=== PATIENT | male | born 1960 | race Caucasian/White ===

== ENCOUNTER → 2017-10-18 | Outpatient (CLI) | payer OTHER | LOC: NM 13:05 | PROVIDERS: ATTEND Internal Medicine | DX: K80.80 Other cholelithiasis without obstruction (principal) ==

== ENCOUNTER 2019-09-17 10:52 | Emergency (ER) | payer OTHER ==
[~2019-09-17] VITALS: Ht 177.8 cm; Wt 74.8 kg
[2019-09-17] MEDS ORDERED: ONDANSETRON HCL INJ 2MG/ML 2ML 2 MG/ML VIAL IV STA (11:27)
[2019-09-17] MEDS ORDERED: SODIUM CHLORIDE 0.9% 1000ML 1,000 ML IV SCH (11:30)
[2019-09-17] MEDS ORDERED: ONDANSETRON HCL INJ 2MG/ML 2ML 2 MG/ML VIAL ONE (11:38)
[2019-09-17] MEDS ORDERED: SODIUM CHLORIDE 0.9% 1000ML 1,000 ML ONE (11:38)
--- NOTE | 2019-09-17 12:38 | Diagnostic Imaging Report ---
EXAM: CXR 2 VIEW - [facility]OPD DATE: 09/17/2019 12:00 AM INDICATION: Cough, congestion COMPARISON: None FINDINGS: The trachea is midline. The lungs are symmetrically expanded without evidence for large focal consolidation, pneumothorax, or significant pleural effusion. The cardiomediastinal silhouette and pulmonary vasculature are within normal limits. Atherosclerotic calcifications noted within the aortic arch. No acute osseous abnormality is identified. The surrounding soft tissues are unremarkable. IMPRESSION: No acute cardiopulmonary process identified. Signed by: Dr. Trung Granados MD on 09/17/2019 12:34 PM
[2019-09-17 13:05] VITALS: BP 155/90
[2019-09-17] MEDS ORDERED: ONDANSETRON ODT8 MG PO (13:07)
--- OUTSIDE RECORDS SUMMARY | 2019-09-20 13:14 | XMS REPORT ---
Author Author [facility] Address Unknown Phone Unavailable Care Team Providers Care Guide Dog Mobility Instructor Name Role Phone Rocael BRAVO Unavailable Unavailable Problems This patient has no known problems. Allergies, Adverse Reactions, Alerts This patient has no known allergies or adverse reactions. Medications This patient has no known medications. Results Test Description Test Time Test Comments Text Results Atomic Results Result Comments CXR 2 VIEW - HOPD 2019-09-17 12:33:00 [place] [address] Patient Name: PRATIBHA WHATLEY MR #: [id number] : 1960 Age/Sex: 59/M Req #: [id number] Adm Physician: Ordered by: THUY BRAVO MD Report #: [id number] Location: [facility] Room/Bed: Procedure: [id number] HOPD/CXR 2 VIEW - [facility]D Exam Date: 09/17/19 Exam Time: 1146 REPORT STATUS: Signed EXAM: CXR 2 VIEW - [facility]OPD DATE: 09/17/2019 12:00 AM INDICATION: Cough, congestion COMPARISON: None FINDINGS: The trachea is midline. The lungs are symmetrically expanded without evidence for large focal consolidation, pneumothorax, or significant pleural effusion. The cardiomediastinal silhouette and pulmonary vasculature are within normal limits. Atherosclerotic calcifications noted within the aortic arch. No acute osseous abnormality is identified. The surrounding soft tissues are unremarkable. IMPRESSION: No acute cardiopulmonary process identified. Signed by: Dr. Trung Castillo MD on 09/17/2019 12:34 PM Dictated By: TRUNG CASTILLO MD [id number] Transcribed By: RAYNA on 09/17/19 1234 COPY TO: THUY BRAVO MD
== END 2019-09-17 13:18 | disposition home or self-care (01) ==
LOC: FSED 10:52
DX: R50.9 Fever, unspecified (principal); R05 Cough; R11.0 Nausea; J11.1 Influenza due to unidentified influenza virus with other respiratory manifestations; R94.5 Abnormal results of liver function studies; I10 Essential (primary) hypertension; D75.1 Secondary polycythemia; F17.210 Nicotine dependence, cigarettes, uncomplicated
CPT/HCPCS: 71046; 80053; 81003; 85025; 87400; 99283; J2405; J7030